=== PATIENT | female | born 1955 | race Caucasian/White ===

== ENCOUNTER → 2024-09-18 19:34 | Outpatient (REF) | payer MEDICARE, OTHER, SELFPAY | LOC: MRI 19:34 | PROVIDERS: ATTENDING PHYSICIAN Internal Medicine; FAMILY PHYSICIAN Family Medicine | DX: M25.512 Pain in left shoulder (principal); M75.22 Bicipital tendinitis, left shoulder; M75.102 Unspecified rotator cuff tear or rupture of left shoulder, not specified as traumatic; M65.912 Unspecified synovitis and tenosynovitis, left shoulder; L40.50 Arthropathic psoriasis, unspecified | CPT/HCPCS: 73223; A9575 ==

== ENCOUNTER → 2025-05-26 07:40 | Outpatient (REF) | payer MEDICARE, OTHER, SELFPAY | LOC: PAVMRI 07:40 | PROVIDERS: ATTENDING PHYSICIAN Internal Medicine; FAMILY PHYSICIAN Family Medicine | DX: L40.50 Arthropathic psoriasis, unspecified (principal); M46.1 Sacroiliitis, not elsewhere classified; M65.911 Unspecified synovitis and tenosynovitis, right shoulder | CPT/HCPCS: 72195 ==